=== PATIENT | male | born 1955 | race African-American/Black ===

== ENCOUNTER 2021-11-17 18:48 | Emergency (ER) | payer MEDICARE, MEDICAID ==
[~2021-11-17] VITALS: Ht 180.3 cm; Wt 100.0 kg
[2021-11-17] MEDS ORDERED: HYDROCODONE/ACETAMINOPHEN 5/325MG TABLET PO ONE (21:15)
[2021-11-17] MEDS ORDERED: IBUPROFEN 400MG TABLET PO ONE (21:15)
[2021-11-17] MEDS ORDERED: ACET-2708 MT (21:49)
[2021-11-17] MEDS ORDERED: NAPR-681 MT (21:49)
[2021-11-17 22:08] VITALS: BP 145/88
== END 2021-11-17 22:11 | disposition home or self-care (01) ==
LOC: ER 18:48
DX: S22.32XA Fracture of one rib, left side, initial encounter for closed fracture (principal); S22.31XA Fracture of one rib, right side, initial encounter for closed fracture; W01.0XXA Fall on same level from slipping, tripping and stumbling without subsequent striking against object, initial encounter; Y93.89 Activity, other specified; Y92.018 Other place in single-family (private) house as the place of occurrence of the external cause
CPT/HCPCS: 71045; 93005; 99283

== ENCOUNTER 2022-06-08 09:22 | Emergency (ER) | payer MEDICARE, MEDICAID ==
[~2022-06-08] VITALS: Ht 182.9 cm; Wt 80.0 kg
[~2022-06-08 09:22] MED LIST: ACET-2708 MT; NAPR-681 MT
[2022-06-08 09:39] VITALS: BP 92/52
[2022-06-08] MEDS ORDERED: CHLORDIAZEPOXIDE 25MG CAPSULE PO ONE (10:15)
[2022-06-08 11:33] LABS: BASOPHILS % 0.7 % (0.0-2.0); EOSINOPHILS % 0.8 % (0.0-5.0); HEMATOCRIT. 30.6 % (42.0-52.0); HEMOGLOBIN. 10.4 g/dL (14.0-18.0); LYMPHOCYTES % 16.8 % (20.0-50.0); MEAN CORPUSCULAR HEMOGLOBIN 33.9 pg (28.0-32.0); MEAN CORPUSCULAR VOLUME 100.1 fL (80.0-94.0); MEAN PLATELET VOLUME 8.5 fl (7.4-10.4); MONOCYTES % 7.6 % (2.0-8.0); NEUTROPHILS % 74.1 % (40.0-76.0); PLATELET 112 x1000/uL (130-400); RED BLOOD CELL COUNT 3.06 mill/uL (4.7-6.1); RED CELL DISTRIBUTION WIDTH 16.3 % (11.6-14.6)
[2022-06-08 11:43] LABS: CHLORIDE 106 mEq/L (98-107)
[2022-06-08] MEDS ORDERED: CHLORDIAZEPOXIDE 25MG CAPSULE PO NR (12:30)
== END 2022-06-08 12:27 | disposition home or self-care (01) ==
LOC: ER 10:19
DX: M54.50 Low back pain, unspecified (principal); H54.62 Unqualified visual loss, left eye, normal vision right eye
CPT/HCPCS: 36415; 71045; 80053; 84484; 85025; 99284

== ENCOUNTER 2022-07-09 16:53 | Emergency (ER) | payer MEDICARE, MEDICAID ==
[~2022-07-09] VITALS: Ht 170.2 cm; Wt 68.0 kg
[2022-07-09 17:01] VITALS: BP 115/72
[2022-07-09] MEDS ORDERED: SODIUM CHLORIDE 0.9% 1,000 ML IV ONE (17:30)
[2022-07-09 17:44] LABS: BASOPHILS % 1.6 % (0.0-2.0); EOSINOPHILS % 1.4 % (0.0-5.0); HEMATOCRIT. 27.1 % (42.0-52.0); HEMOGLOBIN. 9.4 g/dL (14.0-18.0); LYMPHOCYTES % 24.2 % (20.0-50.0); MEAN CORPUSCULAR HEMOGLOBIN 33.4 pg (28.0-32.0); MEAN CORPUSCULAR VOLUME 96.5 fL (80.0-94.0); MONOCYTES % 6.9 % (2.0-8.0); NEUTROPHILS % 65.9 % (40.0-76.0); PLATELET 115 x1000/uL (130-400); RED BLOOD CELL COUNT 2.81 mill/uL (4.7-6.1); RED CELL DISTRIBUTION WIDTH 17.1 % (11.6-14.6)
[2022-07-09 18:06] LABS: CHLORIDE 105 mEq/L (98-107)
== END 2022-07-09 17:57 | disposition left against medical advice (07) ==
LOC: ER 16:53
DX: R55 Syncope and collapse (principal); W18.30XA Fall on same level, unspecified, initial encounter; Y93.01 Activity, walking, marching and hiking; Y92.89 Other specified places as the place of occurrence of the external cause; Y99.8 Other external cause status
CPT/HCPCS: 36415; 80053; 84484; 85025; 93005; 99284; J7030

== ENCOUNTER 2022-08-14 16:08 | Inpatient (IN) | payer MEDICARE, MEDICAID ==
[~2022-08-14] VITALS: Ht 177.8 cm; Wt 72.3 kg
[2022-08-14] MEDS ORDERED: SODIUM CHLORIDE 0.9% 1,000 ML IV ONE ×2 (16:45→18:45)
[2022-08-14 17:38] LABS: BASOPHILS % 0.6 % (0.0-2.0); EOSINOPHILS % 0.5 % (0.0-5.0); HEMATOCRIT. 27.2 % (42.0-52.0); HEMOGLOBIN. 9.4 g/dL (14.0-18.0); LYMPHOCYTES % 21.8 % (20.0-50.0); MEAN CORPUSCULAR VOLUME 95.3 fL (80.0-94.0); MEAN PLATELET VOLUME 9.3 fl (7.4-10.4); MONOCYTES % 7.6 % (2.0-8.0); NEUTROPHILS % 69.5 % (40.0-76.0); PLATELET 95 x1000/uL (130-400); RED BLOOD CELL COUNT 2.85 mill/uL (4.7-6.1); RED CELL DISTRIBUTION WIDTH 16.3 % (11.6-14.6)
[2022-08-14 18:33] LABS: CHLORIDE 89 mEq/L (98-107); CREATINE KINASE 237 IU/L (39-308); ETHANOL BLOOD < 10 mg/dL
[2022-08-14] MEDS ORDERED: POTASSIUM CHLORIDE 20MEQ TABLET SR PO ONE (19:00)
[2022-08-14] MEDS ORDERED: KCL 20MEQ/100ML PREMIX 100 ML IV ONE (19:00)
[2022-08-14 19:25] LABS: CHLORIDE 91 mEq/L (98-107)
[2022-08-14 21:00] VITALS: BP_SYST 143; BP_SYST 148; BP_DIAS 76
[2022-08-14 22:00] VITALS: BP 123/73
[2022-08-15] VITALS (7 sets, daily range): BP systolic 117–160; BP diastolic 74–89
[2022-08-15] MEDS ORDERED: SODIUM CHLORIDE 0.9% 1,000 ML IV SCH ×2 (00:15→08:45)
[2022-08-15 01:02] LABS: CLARITY URINE CLOUDY (CLEAR); COLOR URINE ORANGE (YELLOW); KETONES URINE TRACE (NEGATIVE); LEUKOCYTE ESTERASE URINE 2+ (NEGATIVE); NITRITE URINE POSITIVE (NEGATIVE); OCCULT BLOOD URINE NEGATIVE (NEGATIVE); PH URINE 5.5 (4.5-8.0); PROTEIN URINE 2+ (NEGATIVE); SPECIFIC GRAVITY URINE 1.017 (1.005-1.030)
[2022-08-15 01:17] LABS: *AMPHETAMINES SCREEN URINE NEGATIVE (NEGATIVE); *BARBITURATES SCREEN URINE NEGATIVE (NEGATIVE); *BENZODIAZEPINES SCREEN URINE PRESUMTIVE POSITIVE (NEGATIVE); *COCAINE SCREEN URINE NEGATIVE (NEGATIVE); CANNABINOID URINE SCREEN NEGATIVE (NEGATIVE); METHADONE URINE SCREEN NEGATIVE (NEGATIVE); OPIATES URINE SCREEN NEGATIVE (NEGATIVE); PHENCYCLIDINE URINE SCREEN NEGATIVE (NEGATIVE)
[2022-08-15] MEDS: PANTOPRAZOLE 40MG DR TABLET PO SCH (06:39)
[2022-08-15] MEDS: FOLIC ACID 1MG TABLET PO SCH (08:31)
[2022-08-15] MEDS ORDERED: CLONIDINE 0.1MG TABLET PO PRN (08:45)
[2022-08-15] MEDS ORDERED: HYDROCODONE/ACETAMINOPHEN 5/325MG TABLET PO PRN (08:45)
[2022-08-15] MEDS ORDERED: ACETAMINOPHEN 325MG TABLET PO PRN (08:45)
[2022-08-15] MEDS ORDERED: CEFTRIAXONE 1 G PREMIX 50 ML IV SCH (08:45)
[2022-08-15] MEDS ORDERED: DOCUSATE SODIUM 100MG CAPSULE PO PRN (08:45)
[2022-08-15] MEDS ORDERED: MAGNESIUM/ALUMINUM HYDROXIDE/SIMETHICONE 30ML UDC PO PRN (08:45)
[2022-08-15] MEDS ORDERED: ONDANSETRON HCL 4MG/2ML INJ IV PRN (08:45)
[2022-08-15] MEDS ORDERED: THIAMINE HCL 100MG TABLET PO SCH (09:00)
[2022-08-15] MEDS ORDERED: MULTIVITAMINS,THER W-MINERALS TABLET PO SCH (09:00)
[2022-08-15] MEDS ORDERED: ENOXAPARIN 40MG/0.4ML SYR SUBCUT SCH (09:30)
[2022-08-15] MEDS: CEFTRIAXONE 1,000 MG in DEXTROSE 5% WATER 50 ML IV SCH (11:22)
[2022-08-15] MEDS ORDERED: NALOXONE HCL 0.4MG/ML VIAL IV PRN ×2 (12:15)
[2022-08-15 12:46] LABS: HEMOGLOBIN 7.6 g/dL (14.0-18.0); MEAN CORPUSCULAR HEMOGLOBIN 32.5 pg (28.0-32.0); MEAN CORPUSCULAR VOLUME 94.6 fL (80.0-94.0); PLATELET 80 x1000/uL (130-400); RED BLOOD CELL COUNT 2.33 mill/uL (4.7-6.1); RED CELL DISTRIBUTION WIDTH 16.2 % (11.6-14.6)
[2022-08-15 12:57] LABS: CHLORIDE 96 mEq/L (98-107)
[2022-08-15] MEDS: SODIUM CHL 0.9% + KCL 20MEQ/L 1,000 ML IV SCH ×2 (17:28→20:20)
[2022-08-15 22:08] LABS: HEMATOCRIT 22.3 % (42.0-52.0); HEMOGLOBIN 7.5 g/dL (14.0-18.0)
[2022-08-15] MEDS: CHLORDIAZEPOXIDE 25MG CAPSULE PO SCH (22:19)
[2022-08-15] MEDS: THIAMINE HCL 100MG TABLET PO SCH (22:19)
[2022-08-16] VITALS (7 sets, daily range): BP systolic 123–150; BP diastolic 79–86
[2022-08-16] MEDS: SODIUM CHL 0.9% + KCL 20MEQ/L 1,000 ML IV SCH ×3 (04:26→21:50)
[2022-08-16] MEDS: CHLORDIAZEPOXIDE 25MG CAPSULE PO SCH ×3 (06:37→21:51)
[2022-08-16] MEDS: PANTOPRAZOLE 40MG DR TABLET PO SCH (06:38)
[2022-08-16] MEDS: THIAMINE HCL 100MG TABLET PO SCH (09:19)
[2022-08-16] MEDS: MULTIVITAMINS,THER W-MINERALS TABLET PO SCH (09:19)
[2022-08-16] MEDS: CEFTRIAXONE 1,000 MG in DEXTROSE 5% WATER 50 ML IV SCH (09:19)
[2022-08-16] MEDS: FOLIC ACID 1MG TABLET PO SCH (09:19)
[2022-08-16] MEDS ORDERED: LORAZEPAM 2MG/ML CPJ IV PRN (11:45)
[2022-08-16 12:36] LABS: BASOPHILS % 0.8 % (0.0-2.0); HEMATOCRIT. 23.7 % (42.0-52.0); LYMPHOCYTES % 21.3 % (20.0-50.0); MEAN CORPUSCULAR HEMOGLOBIN 32.3 pg (28.0-32.0); MEAN CORPUSCULAR VOLUME 96.1 fL (80.0-94.0); MEAN PLATELET VOLUME 9.5 fl (7.4-10.4); MONOCYTES % 7.1 % (2.0-8.0); NEUTROPHILS % 69.8 % (40.0-76.0); PLATELET 91 x1000/uL (130-400); RED BLOOD CELL COUNT 2.47 mill/uL (4.7-6.1); RED CELL DISTRIBUTION WIDTH 16.8 % (11.6-14.6)
[2022-08-16 12:47] LABS: INR 1.2; PROTHROMBIN TIME 13.2 sec (9.6-11.0)
[2022-08-16 14:35] LABS: CHLORIDE 102 mEq/L (98-107)
[2022-08-16 15:34] LABS: HDL CHOLESTEROL 92 mg/dL (40-59); LDL CHOLESTEROL 83 mg/dL (5-100); PHOSPHORUS 1.6 mg/dL (2.5-4.9)
[2022-08-16] MEDS ORDERED: MAGNESIUM 2 G PREMIX 50 ML IV NR ×2 (16:04→21:00)
[2022-08-16 16:42] LABS: FERRITIN 923 ng/mL (22-322)
[2022-08-16 16:54] LABS: HEPATITIS B SURFACE ANTIGEN NEGATIVE
[2022-08-16] MEDS ORDERED: LACTULOSE 20G/30ML UDC PO PRN (18:15)
[2022-08-16] MEDS ORDERED: POTASSIUM PHOS,M-BASIC-D-BASIC 30 MMOL in DEXT 5% WATER 500 ML IV NR (18:30)
[2022-08-16 21:03] LABS: VITAMIN B12 SERUM 498 pg/mL (211-911)
[2022-08-16 21:53] LABS: FOLIC ACID (FOLATE) SERUM > 20.00 ng/mL (>5.38)
[2022-08-16] MEDS: LACTULOSE 20G/30ML UDC PO SCH (21:54)
[2022-08-17 00:01] VITALS: BP 116/70
[2022-08-17 04:01] VITALS: BP 108/62
[2022-08-17] MEDS: SODIUM CHL 0.9% + KCL 20MEQ/L 1,000 ML IV SCH ×3 (04:59→21:21)
[2022-08-17 05:55] LABS: BASOPHILS % 0.5 % (0.0-2.0); EOSINOPHILS % 1.3 % (0.0-5.0); HEMATOCRIT. 23.5 % (42.0-52.0); HEMOGLOBIN. 7.9 g/dL (14.0-18.0); MEAN CORPUSCULAR HEMOGLOBIN 32.8 pg (28.0-32.0); MEAN CORPUSCULAR VOLUME 97.2 fL (80.0-94.0); MEAN PLATELET VOLUME 9.5 fl (7.4-10.4); NEUTROPHILS % 67.2 % (40.0-76.0); PLATELET 93 x1000/uL (130-400); RED BLOOD CELL COUNT 2.42 mill/uL (4.7-6.1); RED CELL DISTRIBUTION WIDTH 16.7 % (11.6-14.6)
[2022-08-17 05:58] LABS: CHLORIDE 101 mEq/L (98-107)
[2022-08-17 06:20] LABS: AMYLASE 67 IU/L (25-115); PHOSPHORUS 4.3 mg/dL (2.5-4.9)
[2022-08-17] MEDS: LACTULOSE 20G/30ML UDC PO SCH ×3 (06:54→21:21)
[2022-08-17] MEDS: PANTOPRAZOLE 40MG DR TABLET PO SCH ×2 (06:54→10:00)
[2022-08-17] MEDS: CHLORDIAZEPOXIDE 25MG CAPSULE PO SCH ×3 (06:54→21:21)
[2022-08-17] MEDS ORDERED: MAGNESIUM 2 G PREMIX 50 ML IV NR ×2 (08:00→15:30)
[2022-08-17 08:01] VITALS: BP 126/75
[2022-08-17] MEDS: MULTIVITAMINS,THER W-MINERALS TABLET PO SCH (10:00)
[2022-08-17] MEDS: FOLIC ACID 1MG TABLET PO SCH (10:00)
[2022-08-17] MEDS: MAGNESIUM OXIDE 400MG TABLET PO SCH (10:00)
[2022-08-17] MEDS: THIAMINE HCL 100MG TABLET PO SCH (10:00)
[2022-08-17] MEDS: CEFTRIAXONE 1,000 MG in DEXTROSE 5% WATER 50 ML IV SCH (10:01)
[2022-08-17 12:00] VITALS: BP 118/85
[2022-08-17 16:01] VITALS: BP 112/78
[2022-08-17 20:01] VITALS: BP 103/63
[2022-08-18 00:01] VITALS: BP 116/71
[2022-08-18 04:02] VITALS: BP 111/34
[2022-08-18] MEDS: SODIUM CHL 0.9% + KCL 20MEQ/L 1,000 ML IV SCH ×2 (04:35→20:46)
[2022-08-18] MEDS: LACTULOSE 20G/30ML UDC PO SCH ×2 (05:46→20:46)
[2022-08-18] MEDS: CHLORDIAZEPOXIDE 25MG CAPSULE PO SCH ×3 (05:46→22:05)
[2022-08-18 06:50] LABS: BASOPHILS % 0.8 % (0.0-2.0); EOSINOPHILS % 2.1 % (0.0-5.0); HEMATOCRIT. 22.5 % (42.0-52.0); HEMOGLOBIN. 7.5 g/dL (14.0-18.0); LYMPHOCYTES % 25.2 % (20.0-50.0); MEAN CORPUSCULAR HEMOGLOBIN 32.6 pg (28.0-32.0); MEAN CORPUSCULAR VOLUME 97.8 fL (80.0-94.0); MEAN PLATELET VOLUME 9.6 fl (7.4-10.4); MONOCYTES % 13.9 % (2.0-8.0); PLATELET 118 x1000/uL (130-400); RED BLOOD CELL COUNT 2.31 mill/uL (4.7-6.1); RED CELL DISTRIBUTION WIDTH 17.4 % (11.6-14.6)
[2022-08-18 08:01] VITALS: BP 149/96
[2022-08-18 08:21] LABS: CHLORIDE 107 mEq/L (98-107)
[2022-08-18] MEDS: MAGNESIUM OXIDE 400MG TABLET PO SCH (08:38)
[2022-08-18] MEDS: THIAMINE HCL 100MG TABLET PO SCH (08:38)
[2022-08-18] MEDS: MULTIVITAMINS,THER W-MINERALS TABLET PO SCH (08:38)
[2022-08-18] MEDS: FOLIC ACID 1MG TABLET PO SCH (08:38)
[2022-08-18] MEDS: PANTOPRAZOLE 40MG DR TABLET PO SCH (08:38)
[2022-08-18 09:02] LABS: AMYLASE 68 IU/L (25-115); PHOSPHORUS 2.6 mg/dL (2.5-4.9)
[2022-08-18] MEDS: CEFTRIAXONE 1,000 MG in DEXTROSE 5% WATER 50 ML IV SCH (10:42)
[2022-08-18 12:01] VITALS: BP 127/79
[2022-08-18 16:00] VITALS: BP 145/91
[2022-08-18 20:00] VITALS: BP 132/82
[2022-08-19] VITALS: BP 139/91
[2022-08-19 04:00] VITALS: BP 146/80
[2022-08-19] MEDS: SODIUM CHL 0.9% + KCL 20MEQ/L 1,000 ML IV SCH ×3 (05:40→21:05)
[2022-08-19] MEDS: CHLORDIAZEPOXIDE 25MG CAPSULE PO SCH ×3 (06:18→22:17)
[2022-08-19 06:57] LABS: MEAN CORPUSCULAR HEMOGLOBIN 32.8 pg (28.0-32.0); MEAN PLATELET VOLUME 9.3 fl (7.4-10.4); PLATELET 180 x1000/uL (130-400); RED BLOOD CELL COUNT 2.13 mill/uL (4.7-6.1); RED CELL DISTRIBUTION WIDTH 17.3 % (11.6-14.6)
[2022-08-19 08:16] LABS: HEMATOCRIT. 20.5 % (42.0-52.0)
[2022-08-19] MEDS: THIAMINE HCL 100MG TABLET PO SCH (08:43)
[2022-08-19] MEDS: MAGNESIUM OXIDE 400MG TABLET PO SCH (08:43)
[2022-08-19] MEDS: FOLIC ACID 1MG TABLET PO SCH (08:43)
[2022-08-19] MEDS: MULTIVITAMINS,THER W-MINERALS TABLET PO SCH (08:43)
[2022-08-19] MEDS: PANTOPRAZOLE 40MG DR TABLET PO SCH ×2 (08:45→22:17)
[2022-08-19 10:58] LABS: CHLORIDE 108 mEq/L (98-107)
[2022-08-19 11:08] LABS: AMYLASE 58 IU/L (25-115); PHOSPHORUS 2.8 mg/dL (2.5-4.9)
[2022-08-19 12:00] VITALS: BP 138/82
[2022-08-19 12:53] LABS: HEMATOCRIT 21.7 % (42.0-52.0); HEMOGLOBIN 7.3 g/dL (14.0-18.0)
[2022-08-19] MEDS: CEFTRIAXONE 1,000 MG in DEXTROSE 5% WATER 50 ML IV SCH (12:56)
[2022-08-19] MEDS ORDERED: MAGNESIUM 2 G PREMIX 50 ML IV NR (13:00)
[2022-08-19 13:06] LABS: INR 1.1; PROTHROMBIN TIME 11.4 sec (9.6-11.0)
[2022-08-19 13:33] LABS: NUCLEATED RED BLOOD CELLS 1 /100 WBC; PLATELET ESTIMATE NORMAL
[2022-08-19 16:00] VITALS: BP 134/80
[2022-08-19] MEDS: POLYETHYLENE GLYCOL 3350 (17GM) 1 DOSE PACK PO SCH (19:00)
[2022-08-19] MEDS: DOCUSATE SODIUM 250MG CAPSULE PO SCH (19:00)
[2022-08-19 20:15] VITALS: BP 134/84
[2022-08-19] MEDS: LACTULOSE 20G/30ML UDC PO SCH (22:17)
[2022-08-20] VITALS (13 sets, daily range): BP systolic 118–140; BP diastolic 64–85
[2022-08-20] MEDS: CHLORDIAZEPOXIDE 25MG CAPSULE PO SCH ×3 (05:52→20:49)
[2022-08-20 07:58] LABS: MEAN CORPUSCULAR HEMOGLOBIN 31.9 pg (28.0-32.0); MEAN CORPUSCULAR VOLUME 97.2 fL (80.0-94.0); MEAN PLATELET VOLUME 8.9 fl (7.4-10.4); PLATELET 223 x1000/uL (130-400); RED BLOOD CELL COUNT 2.16 mill/uL (4.7-6.1); RED CELL DISTRIBUTION WIDTH 17.3 % (11.6-14.6)
[2022-08-20 08:14] LABS: HEMOGLOBIN. 6.9 g/dL (14.0-18.0)
[2022-08-20] MEDS: POLYETHYLENE GLYCOL 3350 (17GM) 1 DOSE PACK PO SCH (08:41)
[2022-08-20] MEDS: DOCUSATE SODIUM 250MG CAPSULE PO SCH (08:41)
[2022-08-20] MEDS: PANTOPRAZOLE 40MG DR TABLET PO SCH ×2 (09:11→20:49)
[2022-08-20] MEDS: MULTIVITAMINS,THER W-MINERALS TABLET PO SCH (09:11)
[2022-08-20] MEDS: THIAMINE HCL 100MG TABLET PO SCH (09:11)
[2022-08-20] MEDS: MAGNESIUM OXIDE 400MG TABLET PO SCH (09:11)
[2022-08-20] MEDS: FOLIC ACID 1MG TABLET PO SCH (09:14)
[2022-08-20] MEDS: CEFTRIAXONE 1,000 MG in DEXTROSE 5% WATER 50 ML IV SCH (09:14)
[2022-08-20 10:21] LABS: CHLORIDE 108 mEq/L (98-107)
[2022-08-20 10:31] LABS: AMYLASE 63 IU/L (25-115); PHOSPHORUS 2.7 mg/dL (2.5-4.9)
[2022-08-20] MEDS: SODIUM CHL 0.9% + KCL 20MEQ/L 1,000 ML IV SCH (12:13)
[2022-08-20] MEDS ORDERED: MAGNESIUM 2 G PREMIX 50 ML IV NR (14:00)
[2022-08-20 14:45] LABS: PLATELET ESTIMATE NORMAL
[2022-08-20] MEDS: RIFAXIMIN 550 MG TABLET PO SCH ×2 (15:00→20:49)
[2022-08-20] MEDS: LACTULOSE 20G/30ML UDC PO SCH (17:00)
[2022-08-21] VITALS: BP 147/80
[2022-08-21 04:00] VITALS: BP 155/107
[2022-08-21] MEDS: SODIUM CHL 0.9% + KCL 20MEQ/L 1,000 ML IV SCH ×2 (04:41→20:07)
[2022-08-21 07:02] LABS: HEMATOCRIT. 22.5 % (42.0-52.0); HEMOGLOBIN. 7.5 g/dL (14.0-18.0); MEAN CORPUSCULAR HEMOGLOBIN 31.8 pg (28.0-32.0); MEAN CORPUSCULAR VOLUME 95.3 fL (80.0-94.0); MEAN PLATELET VOLUME 8.7 fl (7.4-10.4); PLATELET 248 x1000/uL (130-400); RED BLOOD CELL COUNT 2.36 mill/uL (4.7-6.1); RED CELL DISTRIBUTION WIDTH 18.9 % (11.6-14.6)
[2022-08-21 08:00] VITALS: BP 148/84
[2022-08-21] MEDS: LACTULOSE 20G/30ML UDC PO SCH ×2 (08:48→18:23)
[2022-08-21] MEDS: THIAMINE HCL 100MG TABLET PO SCH (08:48)
[2022-08-21] MEDS: FOLIC ACID 1MG TABLET PO SCH (08:48)
[2022-08-21] MEDS: MAGNESIUM OXIDE 400MG TABLET PO SCH (08:48)
[2022-08-21] MEDS: PANTOPRAZOLE 40MG DR TABLET PO SCH ×2 (08:48→21:54)
[2022-08-21] MEDS: MULTIVITAMINS,THER W-MINERALS TABLET PO SCH (08:48)
[2022-08-21] MEDS: RIFAXIMIN 550 MG TABLET PO SCH ×2 (08:48→21:55)
[2022-08-21 08:54] LABS: CHLORIDE 110 mEq/L (98-107)
[2022-08-21] MEDS: POLYETHYLENE GLYCOL 3350 (17GM) 1 DOSE PACK PO SCH (09:00)
[2022-08-21] MEDS: DOCUSATE SODIUM 250MG CAPSULE PO SCH (09:00)
[2022-08-21 09:04] LABS: AMYLASE 64 IU/L (25-115); PHOSPHORUS 2.8 mg/dL (2.5-4.9)
[2022-08-21] MEDS ORDERED: THIA100T72 PO (10:40)
[2022-08-21] MEDS ORDERED: MAGN400T26 MT (10:40)
[2022-08-21 12:00] VITALS: BP 153/90
[2022-08-21 16:00] VITALS: BP 133/75
[2022-08-21 18:34] LABS: PLATELET ESTIMATE NORMAL
[2022-08-21 20:00] VITALS: BP 150/89
[2022-08-22] VITALS: BP 142/87
[2022-08-22 04:00] VITALS: BP 147/77
[2022-08-22] MEDS: SODIUM CHL 0.9% + KCL 20MEQ/L 1,000 ML IV SCH (04:21)
[2022-08-22 07:12] LABS: HEMATOCRIT. 23.6 % (42.0-52.0); MEAN CORPUSCULAR VOLUME 94.9 fL (80.0-94.0); MEAN PLATELET VOLUME 8.9 fl (7.4-10.4); PLATELET 250 x1000/uL (130-400); RED BLOOD CELL COUNT 2.48 mill/uL (4.7-6.1); RED CELL DISTRIBUTION WIDTH 18.3 % (11.6-14.6)
[2022-08-22 07:34] LABS: AMYLASE 66 IU/L (25-115); CHLORIDE 111 mEq/L (98-107)
[2022-08-22 08:27] VITALS: BP 116/26
[2022-08-22] MEDS: LACTULOSE 20G/30ML UDC PO SCH (09:00)
[2022-08-22] MEDS: POLYETHYLENE GLYCOL 3350 (17GM) 1 DOSE PACK PO SCH (09:00)
[2022-08-22] MEDS: THIAMINE HCL 100MG TABLET PO SCH (09:12)
[2022-08-22] MEDS: MULTIVITAMINS,THER W-MINERALS TABLET PO SCH (09:12)
[2022-08-22] MEDS: MAGNESIUM OXIDE 400MG TABLET PO SCH (09:12)
[2022-08-22] MEDS: PANTOPRAZOLE 40MG DR TABLET PO SCH (09:12)
[2022-08-22] MEDS: FOLIC ACID 1MG TABLET PO SCH (09:12)
[2022-08-22] MEDS: RIFAXIMIN 550 MG TABLET PO SCH (09:13)
[2022-08-22] MEDS: DOCUSATE SODIUM 250MG CAPSULE PO SCH (09:13)
[2022-08-22 12:14] VITALS: BP 116/26
[2022-08-22] MEDS ORDERED: MAGNESIUM 2 G PREMIX 50 ML IV NR (13:45)
[2022-08-22] MEDS ORDERED: MAGNESIUM OXIDE 400MG TABLET PO SCH (13:45)
[2022-08-22 20:12] LABS: PLATELET ESTIMATE NORMAL
== END 2022-08-22 14:25 | disposition home health service (06) | DRG 438 ==
LOC: ER 16:08 → 3WST 17:59 → ENRESERV 19:14
PROVIDERS: ADMIT Internal Medicine; ATTEND Internal Medicine
PROC: 30233N1 Transfusion of Nonautologous Red Blood Cells into Peripheral Vein, Percutaneous Approach (ICD-10-PCS; principal; 2022-08-20)
DX: K85.90 Acute pancreatitis without necrosis or infection, unspecified (principal); G92.8 Other toxic encephalopathy; N39.0 Urinary tract infection, site not specified; E72.20 Disorder of urea cycle metabolism, unspecified; F10.239 Alcohol dependence with withdrawal, unspecified; R17 Unspecified jaundice; E87.6 Hypokalemia; D53.9 Nutritional anemia, unspecified; D63.8 Anemia in other chronic diseases classified elsewhere; D69.6 Thrombocytopenia, unspecified; R74.01 Elevation of levels of liver transaminase levels; E83.42 Hypomagnesemia; B96.20 Unspecified Escherichia coli [E. coli] as the cause of diseases classified elsewhere; R74.8 Abnormal levels of other serum enzymes; R62.7 Adult failure to thrive; Z79.899 Other long term (current) drug therapy; Z68.22 Body mass index [BMI] 22.0-22.9, adult
CPT/HCPCS: 36415; 71045; 74181; 76700; 80048; 80053; 80061; 80076; 80305; 80307; 80320; 80329; 81003; 82140; 82150; 82248; 82270; 82550; 82607; 82728; 82746; 83540; 83550; 83735; 84100; 84439; 84443; 84484; 85014; 85018; 85025; 85027; 85044; 85049; 85384; 86705; 86709; 86803; 86850; 86900; 86920; 87077; 87186; 87340; 93005; 93970; 97162; 99291; C1893; J0696; J1650; J2060; J3475; J3480; J3490; J7030; J7060; P9016; G0480